=== PATIENT | male | born 2000 | race Caucasian/White ===

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

== ENCOUNTER 2024-02-12 11:29 | Outpatient (CLI) | payer OTHER | END 2024-02-12 11:30 | disposition home or self-care (01) | LOC: BURRAD 11:29 | PROVIDERS: ATTEND Nurse Practitioner Family | DX: R31.0 Gross hematuria (principal) | CPT/HCPCS: 74018 ==